=== PATIENT | male | born 1975 | race Caucasian/White ===

== ENCOUNTER 2019-03-31 00:58 | Emergency (ER) | payer BC, OTHER ==
[~2019-03-31] VITALS: Ht 175.3 cm; Wt 81.6 kg
--- NOTE | 2019-03-31 01:09 | NUR ---
PT AAOX4. BIBSELF C/O R FOOT PAIN S/P [employer]. PT WAS WALKING HIS DOG AND REPORTED HE TRIPPED. VSS. NO ACUTE DISTRESS NOTED. PT ABLE TO LIFT R FOOD. NO NEURO DEFICIT.
[2019-03-31] MEDS ORDERED: IBUPROFEN 400 MG TABLET ONE (01:17)
[2019-03-31] MEDS ORDERED: IBUPROFEN 400 MG TABLET PO ONE (01:30)
--- NOTE | 2019-03-31 01:39 | NUR ---
EMT AT BEDSIDE FOR CRUTCHES AND BOOT.
--- NOTE | 2019-03-31 01:55 | NUR ---
Patient discharged to home in stable condition. Written and verbal after care instructions given. Patient verbalizes understanding of instruction and RX. Pt was taught how to use crutches. Pt ambulated using cruthces. VSS. No acute distress noted.
[2019-03-31 01:56] VITALS: BP 116/72
== END 2019-03-31 01:56 | disposition home or self-care (01) ==
LOC: ER 00:59
DX: S93.491A Sprain of other ligament of right ankle, initial encounter (principal); I10 Essential (primary) hypertension; F10.10 Alcohol abuse, uncomplicated; Y90.9 Presence of alcohol in blood, level not specified; W18.39XA Other fall on same level, initial encounter; Y93.89 Activity, other specified; Y92.89 Other specified places as the place of occurrence of the external cause; Y99.8 Other external cause status
CPT/HCPCS: 73610-TC